=== PATIENT | female | born 1930 | race American Indian/Alaskan Native ===

== ENCOUNTER 2018-03-23 19:31 | Inpatient (IN) | payer MEDICARE ==
--- NOTE | 2018-03-23 19:40 | Emergency Department Report ---
ED Neuro Deficit HPI - General Stated Complaint: POSS STROKE Time Seen by Provider: 03/23/18 19:39 Source: patient, EMS, old records reviewed (no previous meditech) Mode of arrival: Stretcher Limitations: No Limitations - History of Present Illness Initial Comments: 87-year-old female with past medical history of difficulty walking, generalized muscle weekends, lack of coordination, hypothyroidism, hypertension, heart failure, and GERD presents to the hospital with stroke symptoms Last known well time was 6:30 PM. Son at the bedside and noticed sx at 6:30 as well. Pt devel oped slurred speech and possible left-sided weakness. Patient presents to the hospital and oriented 3. She denies pain. Son at bedside states that patient was just admitted to the [facility] for failure to thrive and discharged into the long term on March 19. Prior to the patient lived at home. - Related Data Allergies/Adverse Reactions: Allergies Allergy/AdvReac Type Severity Reaction Status Date / Time No Known Allergies Allergy Unverified 03/23/18 19:34 ED Review of Systems ROS: Stated complaint: POSS STROKE Other details as noted in HPI Comment: All other systems reviewed and negative ED Neuro Physical Exam - General Suspected Stroke: Yes - NIHSS Assessment Interval: Baseline 1a. Level of Consciousness: alert/keenly responsive 1b. LOC Questions: answers both correctly 1c. LOC Commands: performs tasks correctly 2. Best Gaze: normal 3. Visual: no visual loss 4. Facial Palsy: partial paralysis 5b. Motor Arm Right: no drift 5a. Motor Arm Left: drift 6a. Motor Leg Left: no drift 6b. Motor Leg Right: no drift 7. Limb Ataxia: absent 8. Sensory: normal 9. Best Language: no aphasia 10. Dysarthria: mild/moderate dysarthria 11. Extinction/Inattention: no abnormality Total Score: 4 Stroke Severity: Minor Stroke - Other Other exam information: General: No limitations, patient is alert in no acute distress Head exam: Atraumatic, normocephalic Eyes exam: Normal appearance, pupils equal reactive to light, extraocular movements intact ENT: Moist mucous membrane, normal oropharynx Neck exam: Normal inspection, full range of motion, no meningismus nontender Respiratory exam: Clear to auscultation bilateral, no wheezes, rales, crackles Cardiovascular: Abdomen: Soft, nondistended, and nontender, with normal bowel sounds, no rebound, or guarding Extremity: Full range of motion normal inspection no deformity Back: Normal Inspection, full range of motion, no tenderness Neurologic: Alert, oriented x3, left facial droop noted. GCS 15 Psychiatric: normal affect, normal mood Skin: Warm, dry, intact ED Course Vital Signs 03/23/18 03/23/18 03/23/18 20:03 20:10 20:16 Temperature 98.7 F Pulse Rate 75 75 71 Respiratory 12 15 18 Rate Blood Pressure 112/43 112/43 O2 Sat by Pulse 95 Oximetry 03/23/18 03/23/18 03/23/18 20:30 20:46 21:34 Temperature Pulse Rate 86 82 73 Respiratory 21 16 Rate Blood Pressure 134/57 110/53 O2 Sat by Pulse 100 Oximetry 03/23/18 03/23/18 03/23/18 21:37 21:46 22:00 Temperature Pulse Rate 78 71 90 Respiratory 16 21 20 Rate Blood Pressure 108/44 96/47 O2 Sat by Pulse 100 100 Oximetry 03/23/18 03/23/18 03/23/18 22:16 22:30 22:46 Temperature Pulse Rate 99 H 88 76 Respiratory 22 22 15 Rate Blood Pressure 97/39 68/31 94/31 O2 Sat by Pulse 100 100 100 Oximetry 03/23/18 03/23/18 03/23/18 23:00 23:16 23:30 Temperature Pulse Rate 89 81 75 Respiratory 18 13 16 Rate Blood Pressure 117/43 120/49 114/48 O2 Sat by Pulse 100 100 100 Oximetry 03/23/18 03/23/18 03/23/18 23:35 23:46 23:56 Temperature Pulse Rate 76 96 H 85 Respiratory 10 L 21 16 Rate Blood Pressure 114/48 104/54 109/49 O2 Sat by Pulse 100 100 100 Oximetry 03/24/18 03/24/18 03/24/18 00:00 00:16 00:30 Temperature Pulse Rate 89 83 76 Respiratory 10 L 17 12 Rate Blood Pressure 101/50 108/39 110/44 O2 Sat by Pulse 100 100 100 Oximetry 03/24/18 00:46 Temperature Pulse Rate 72 Respiratory 14 Rate Blood Pressure 108/40 O2 Sat by Pulse 100 Oximetry - Reevaluation(s) Reevaluation #1: 03/23/18 22:02 I informed me that patient has worsening left sided weakness. Patient still is alert and oriented 3 but now has some increased weakness to the left side and also has some decreased sensation to touch. 03/23/18 22:50 BP low after TPA, systolic blood pressure dropped to the 50s and 60s. Patient received 1 L of normal saline and systolic pressure is now in the 90s. - Consultations Consultation #1: 03/23/18 19:58 neurologist paged 03/23/18 20:15 case d/w Dr kilgore, [facility] pt 03/23/18 20:35 TPA and cta head and neck recommended. Consultation #2: 03/23/18 22:53 Hypotension while tPA and worsening left sided weakness was discussed with tele- neurologist Dr. Rogers. IV fluids recommended - Lab Data Result diagrams: 03/23/18 19:48 03/23/18 19:48 Lab Results 03/23/18 03/23/18 03/23/18 Range/Units 19:36 19:48 19:48 WBC 6.5 (4.5-11.0) K/mm3 RBC 3.13 L (3.65-5.03) M/mm3 Hgb 9.0 L (10.1-14.3) gm/dl Hct 28.3 L (30.3-42.9) % MCV 90 (79-97) fl MCH 29 (28-32) pg MCHC 32 (30-34) % RDW 17.0 H (13.2-15.2) % Plt Count 923 H (140-440) K/mm3 Lymph % (Auto) 24.7 (13.4-35.0) % [place] % (Auto) 12.2 H (0.0-7.3) % Eos % (Auto) 2.1 (0.0-4.3) % Baso % (Auto) 0.9 (0.0-1.8) % Lymph # 1.6 (1.2-5.4) K/mm3 [place] # 0.8 (0.0-0.8) K/mm3 Eos # 0.1 (0.0-0.4) K/mm3 Baso # 0.1 (0.0-0.1) K/mm3 Seg Neutrophils % 60.1 (40.0-70.0) % Seg Neutrophils # 3.9 (1.8-7.7) K/mm3 PT 14.0 (12.2-14.9) Sec. INR 1.04 (0.87-1.13) APTT 20.0 L (24.2-36.6) Sec. Thrombin Time 18.7 (15.1-19.6) Sec. Sodium (137-145) mmol/L Potassium (3.6-5.0) mmol/L Chloride (98-107) mmol/L Carbon Dioxide (22-30) mmol/L Anion Gap mmol/L BUN (7-17) mg/dL Creatinine (0.7-1.2) mg/dL Estimated GFR ml/min BUN/Creatinine Ratio % Glucose (65-100) mg/dL POC Glucose 173 H (70-105) Calcium (8.4-10.2) mg/dL Troponin T (0.00-0.029) ng/mL 03/23/18 Range/Units 19:48 WBC (4.5-11.0) K/mm3 RBC (3.65-5.03) M/mm3 Hgb (10.1-14.3) gm/dl Hct (30.3-42.9) % MCV (79-97) fl MCH (28-32) pg MCHC (30-34) % RDW (13.2-15.2) % Plt Count (140-440) K/mm3 Lymph % (Auto) (13.4-35.0) % [place] % (Auto) (0.0-7.3) % Eos % (Auto) (0.0-4.3) % Baso % (Auto) (0.0-1.8) % Lymph # (1.2-5.4) K/mm3 [place] # (0.0-0.8) K/mm3 Eos # (0.0-0.4) K/mm3 Baso # (0.0-0.1) K/mm3 Seg Neutrophils % (40.0-70.0) % Seg Neutrophils # (1.8-7.7) K/mm3 PT (12.2-14.9) Sec. INR (0.87-1.13) APTT (24.2-36.6) Sec. Thrombin Time (15.1-19.6) Sec. Sodium 132 L (137-145) mmol/L Potassium 4.8 (3.6-5.0) mmol/L Chloride 96.5 L (98-107) mmol/L Carbon Dioxide 23 (22-30) mmol/L Anion Gap 17 mmol/L BUN 21 H (7-17) mg/dL Creatinine 0.8 (0.7-1.2) mg/dL Estimated GFR > 60 ml/min BUN/Creatinine Ratio 26 % Glucose 157 H (65-100) mg/dL POC Glucose (70-105) Calcium 8.6 (8.4-10.2) mg/dL Troponin T 0.024 (0.00-0.029) ng/mL - EKG Data -: EKG Interpreted by Me EKG shows normal: sinus rhythm (qrsd 112), axis (qrs -48), QRS complexes (qrsd 112), ST-T waves (lat t inv) When compared to previous EKG there are: previous EKG unavailable - Radiology Data Radiology results: report reviewed ct head: No acute findings CT angiogram head: No acute findings CT angiogram neck: Bilateral arthrosclerotic carotid disease without significant narrowing - Medical Decision Making Patient received TPA. Just before the end of tpa infusion patient developed worsening left-sided weakness, continued to deny pain, and blood pressure decreased. Blood pressure increased after 1 L normal saline bolus. CTA performed and patient is not a candidate for transfer to [facility]. Hospitalist informed for admission P - Differential Diagnosis stroke, encephalopathy, infection - Thrombolytic Inclusion/Exclusion Thrombolytic Inclusion Criteria: Ischemic Stroke Onset< 3h, NIH Stroke Scale Deficit, Negative CT Scan for ICH, Age 18 or Older, Glucose of 50-400mg/dl Critical Care Time: Yes Critical care time in (mins) excluding proc time.: 40 Critical care attestation.: If time is entered above; I have spent that time in minutes in the direct care of this critically ill patient, excluding procedure time. ED Disposition Clinical Impression: Acute CVA (cerebrovascular accident), Left-sided weakness, Slurred speech, Received intravenous tissue plasminogen activator (tPA) in emergency department Disposition: DC-09 OP ADMIT IP TO THIS HOSP Is pt being admited?: Yes Condition: Stable Time of Disposition: 22:55 (Dr Donaldson/hosp)
--- NOTE | 2018-03-23 19:56 | Cat Scan Report ---
FINAL REPORT PROCEDURE: CT head without contrast. TECHNIQUE: Computerized tomography of the head was performed without contrast material. HISTORY: neuro deficits <6hrs or sx present upon awakening, LT SIDED WEAKNESS, UNABLE TO STRAIGHT EN HEAD COMPARISON: No prior studies are available for comparison. FINDINGS: There is moderate cerebral atrophy. There is some focal diminished attenuation in the subcortical whi te matter of the right frontal lobe. This is located laterally. This likely represents chronic microv ascular ischemic change. There are no definite signs of acute infarction. An MRI scan with diffusion- weighted imaging is the most sensitive means of detecting an early stroke. There are no mass lesions. There is no intracranial hemorrhage. The calvarium appears intact. The mastoid air cells and paranas al sinuses are well aerated. IMPRESSION: Normal study of the brain for age.
[2018-03-23 20:09] LABS: Basophils # (Auto) 0.1 K/mm3 (0.0-0.1); Basophils % (Auto) 0.9 % (0.0-1.8); Eosinophils # (Auto) 0.1 K/mm3 (0.0-0.4); Eosinophils % (Auto) 2.1 % (0.0-4.3); Hematocrit 28.3 % (30.3-42.9); Lymphocytes # (Auto) 1.6 K/mm3 (1.2-5.4); Lymphocytes % (Auto) 24.7 % (13.4-35.0); Mean Corpuscular HGB Conc 32 % (30-34); Mean Corpuscular Volume 90 fl (79-97); Monocytes # (Auto) 0.8 K/mm3 (0.0-0.8); Monocytes % (Auto) 12.2 % (0.0-7.3); Platelet Count 923 K/mm3 (140-440); Red Blood Count 3.13 M/mm3 (3.65-5.03)
[2018-03-23 20:22] LABS: BUN/Creatinine Ratio 26; Blood Urea Nitrogen 21 mg/dL (7-17); Calcium 8.6 mg/dL (8.4-10.2); Hemolysis Index 2
[2018-03-23 20:25] LABS: INR 1.04 (0.87-1.13)
[2018-03-23 20:26] LABS: Thrombin Time 18.7 Sec. (15.1-19.6)
[2018-03-23] MEDS ORDERED: ACTIVASE IV ONE ×2 (20:35)
[2018-03-23] MEDS ORDERED: NACL 0.9% IV ONE (20:35)
--- NOTE | 2018-03-23 21:37 | Cat Scan Report ---
FINAL REPORT PROCEDURE: CT angiogram head with contrast TECHNIQUE: Computerized tomographic angiography of the head was performed after the IV injection of iodinated nonionic contrast including image processing. The image data was postprocessed using 2-dime nsional multiplanar reformatted (MPR) and 3-dimensional (MIP and/or volume rendered) techniques. HISTORY: acute stroke. left sided droop, slurred speech COMPARISON: No prior studies are available for comparison. FINDINGS: Both distal internal carotid arteries are patent. Both anterior cerebral arteries are patent. The ant erior communicating artery is not definitely visualized. Both middle cerebral arteries are patent. Benja th posterior communicating arteries are patent. Both posterior cerebral arteries appear to have origins from the internal carotid arteries. Both distal vertebral arteries are patent. Both posterio r inferior cerebellar arteries are patent. The basilar artery is small but patent. Both anterior infe rior cerebellar arteries are faintly visible. Both superior cerebellar arteries are patent. There are no signs of aneurysm disease. There is no evidence of a vasculitis. There are no signs of abnormal c ontrast enhancement within the brain parenchyma. IMPRESSION: No significant abnormality identified.
--- NOTE | 2018-03-23 22:26 | Cat Scan Report ---
FINAL REPORT PROCEDURE: CT angiogram neck with contrast. TECHNIQUE: Computerized tomographic angiography of the neck was performed after the IV injection of iodinated nonionic contrast including image processing. The image data was postprocessed using 2-dime nsional multiplanar reformatted (MPR) and 3-dimensional (MIP and/or volume rendered) techniques. HISTORY: acute stroke. left sided droop, slurred speech COMPARISON: No prior studies are available for comparison. Note: Assessment of carotid artery stenosis is based on measurement of the distal internal carotid a rtery diameter as the denominator for stenosis calculations and the [place] Symptomatic Caroti d Endarterectomy Trial (NASCET) stenosis criteria . CPT 3100F FINDINGS: The origins of the innominate artery, left common carotid artery and left subclavian artery are widel y patent. There is calcified plaque present in the mid and distal portions of the right common caroti d artery. There is no significant narrowing however. There is additional calcified plaque at the flores tid bifurcation. The origins of the internal and external carotid arteries are widely patent. The cer vical portion of the right internal carotid artery has a satisfactory lumen. There is calcified plaqu e in the midportion of the left common carotid artery. Again there is no significant narrowing at thi s location. There is additional calcified plaque at the left carotid bifurcation. There is minimal na rrowing at the origin of the left internal carotid artery. This is estimated at 20 percent. The exter nal carotid artery is widely patent. The cervical portion of the left internal carotid artery appear satisfactory. Both vertebral arteries are patent. The soft tissues of the neck are unremarkable. The bones appear intact. IMPRESSION: Bilateral atherosclerotic disease involving the carotid arteries. No evidence of hemodynamically sign ificant narrowing however.
[2018-03-23] MEDS ORDERED: NACL 0.9% 1000 ML 1,000 ML ONE (22:28)
[2018-03-23] MEDS ORDERED: NACL 0.9% 1000 ML 1,000 ML IV ONE (22:35)
[2018-03-23] MEDS ORDERED: TYLENOL PR PRN (23:52)
[2018-03-23] MEDS ORDERED: ZOFRAN IV PRN (23:56)
[2018-03-24] MEDS ORDERED: NACL 0.9% 1000 ML 1,000 ML IV SCH (01:00)
[2018-03-24] MEDS ORDERED: NACL 0.9% 1000 ML 1,000 ML ONE (01:20)
--- NOTE | 2018-03-24 06:40 | History and Physical Report ---
CHIEF COMPLAINT: Slurred speech. Other complaints include weakness of the left side of the body and drooling on the left side of the face. HISTORY OF PRESENT ILLNESS: The patient is an 87-year-old female, who was recently discharged from [facility] and [facility] and was noted by the son at the bedside to be having slurred speech few hours prior to presentation and also the patient was noted to be having left-sided weakness, and EMS was called and the patient was subsequently transported to the Emergency Room for evaluation, No history of chest pain or shortness of breath or dizziness. The patient was seen in the Emergency Room and given the TPA because she arrived within the 3-hour window for TPA treatment and subsequently presented for admission. PAST MEDICAL HISTORY: Pertinent for hypertension, congestive heart failure, gastroesophageal reflux disease, and hypothyroidism. PAST SURGICAL HISTORY: Not clear. We will defer. FAMILY HISTORY: Noncontributory. SOCIAL HISTORY: The patient stays at the senior care, does not smoke, does not drink alcohol, and does not use illicit drugs. MEDICATIONS: The patient's home medications are not known at this time. ALLERGIES: There are no known drug allergies. REVIEW OF SYSTEMS: CONSTITUTIONAL: There is no fever, no chills, no diaphoresis. HEENT: There is no headache or sore throat. CARDIOVASCULAR SYSTEM: There is no chest pain or orthopnea. RESPIRATORY SYSTEM: There is no shortness of breath or cough. GASTROINTESTINAL SYSTEM: There is no nausea, no vomiting, no abdominal pain, diarrhea or constipation. NEUROLOGICAL SYSTEM: Speech impairment with slurring of speech noted. Drooling of the left side of the face noted. Weakness on the left side of the body noted. There is no altered mental status and there is no numbness. MUSCULOSKELETAL SYSTEM: There is no joint pain or swelling. DERMATOLOGICAL SYSTEM: There is no skin rash or itching. GENITOURINARY SYSTEM: There is no dysuria, hematuria or flank pain. Rest of system review is normal. PHYSICAL EXAMINATION: GENERAL: At the time of exam, the patient was found to be alert and oriented x3 and in mild distress due to weakness on the left side. VITAL SIGNS: At the initial time of presentation showed that the patient has a temperature of 98.7 degrees Fahrenheit, pulse of 75, respirations 16, blood pressure 102/43, and O2 sat of 95% on room air. HEENT: Exam shows pupils to be equal, round, and reactive to light and accommodation. Extraocular muscles are intact. NECK: Supple with no JVD or carotid bruit. CARDIOVASCULAR SYSTEM: Showed normal first and second heart sounds with no gallops or murmur. RESPIRATORY SYSTEM: Showed good air entry on both sides of the lungs with no abnormal breath sounds. GASTROINTESTINAL SYSTEM: Showed abdomen to be full, soft, nontender with no organomegaly or rigidity. NEUROLOGIC SYSTEM: Exam showed the patient with drooling on the left side of the face with mouth drawn to the right side and the muscle weakness on left upper and lower limb with strength of grade 3/6 compared to grade 6/6 on the right. There is no loss of sensory function. MUSCULOSKELETAL SYSTEM: Showed no joint swelling or tenderness. DERMATOLOGICAL SYSTEM: Showed no skin rash. GENITOURINARY SYSTEM: Showing no costovertebral angle tenderness. PERTINENT LABORATORY DATA AND IMAGING STUDIES: The patient had a CT of the head without contrast done that shows no acute lesion and also the patient has CT angiogram of the head that shows no significant abnormality. The patient also had a CT angiogram of the neck, which shows bilateral atherosclerotic disease involving the carotid arteries with no evidence of hemodynamically significant narrowing. Laboratory results: The patient has CBC done with low hemoglobin of 9 and low hematocrit of 28.3, with normal MCV and with CBC differential showing elevated monocyte count of 12.2%. The patient's platelet level is high with a value of 923. Coagulation studies were unremarkable. The patient's chemistry shows slight decrease in sodium level of 132 with decreased chloride of 96.2 and elevated blood glucose level of 157 and normal troponin level. DIAGNOSES: 1. Cerebrovascular accident, status post TPA. 2. Speech impairment. 3. Hypotension. PLAN OF CARE: 1. The patient will be admitted to telemetry. 2. The patient will have Neurology consult with Dr. Derick Matute this morning. 3. The patient will have physical therapy and speech therapy consult for evaluation and treatment this morning. 4. The patient will remain n.p.o. until she passes the swallow test. 5. The patient will have MRI of the brain without contrast done this morning. 6. The patient will be on Tylenol 650 mg rectally every 4 hours as needed for fever and headache and IV Zofran 4 mg every 8 hours for nausea and vomiting. 7. The patient will be on oxygen by nasal cannula at 2 liters per minute. 8. The patient will be on IV normal saline at 75 mL an hour. 9. The patient will have bilateral carotid Doppler as well as 2D echo done this morning as part of stroke workup. 10. The patient will be on neuro check q.4 hours and DVT prophylaxis will be through sequential compressive device. JOB# [id number] OCN/NTS MTDD
[2018-03-24 07:24] LABS: Partial Thromboplastin Time 29.9 Sec. (24.2-36.6)
--- NOTE | 2018-03-24 10:35 | Progress Note ---
Assessment and Plan Acute cerebrovascular accident, - status post TPA, MRI brain pending - cont post tPA stroke protocol, consulted neuro History of hypertension. - BP stable, cont to monitor Adult failure to thrive. - PT eval, diet consult Hypothyroidism. - will start synthroid after cleared by speech Congestive heart failure with rEF 15% - compensated now Gastroesophageal reflux disease, PPI Mild hyponatremia, gentle hydration for now Anemia normocytic, monitor h/H, will check iron level Brief history: 87-year-old female with past medical history of recent CVA and [place] [facility] [place] [facility] [place], hypothyroidism, hypertension, heart failure, and GERD presents to the hospital with stroke symptoms Last known well time was 6:30 PM per the SON. Pt developed slurred speech and possible left-sided weakness. She was given TPA in the ER as she was in the therapeutic window. Admitted with stroke protocol. Subjective Date of service: 03/24/18 Interval history: Pt seen and examined, follows commend, denies any chest pain or SOB speech eval pending Objective - Constitutional Vitals: Vital Signs - 12hr 03/23/18 03/23/18 03/23/18 22:46 23:00 23:16 Pulse Rate 76 89 81 Pulse Rate [ From Monitor] Pulse Rate [ Left Arm] Respiratory 15 18 13 Rate Respiratory Rate [Left Arm] Blood Pressure 94/31 117/43 120/49 Blood Pressure [Left Arm] O2 Sat by Pulse 100 100 100 Oximetry O2 Sat by Pulse Oximetry [Left Arm] 03/23/18 03/23/18 03/23/18 23:30 23:35 23:46 Pulse Rate 75 76 96 H Pulse Rate [ From Monitor] Pulse Rate [ Left Arm] Respiratory 16 10 L 21 Rate Respiratory Rate [Left Arm] Blood Pressure 114/48 114/48 104/54 Blood Pressure [Left Arm] O2 Sat by Pulse 100 100 100 Oximetry O2 Sat by Pulse Oximetry [Left Arm] 03/23/18 03/24/18 03/24/18 23:56 00:00 00:16 Pulse Rate 85 89 83 Pulse Rate [ From Monitor] Pulse Rate [ Left Arm] Respiratory 16 10 L 17 Rate Respiratory Rate [Left Arm] Blood Pressure 109/49 101/50 108/39 Blood Pressure [Left Arm] O2 Sat by Pulse 100 100 100 Oximetry O2 Sat by Pulse Oximetry [Left Arm] 03/24/18 03/24/1803/24/19 00:30 00:46 01:00 Pulse Rate 76 72 77 Pulse Rate [ From Monitor] Pulse Rate [ Left Arm] Respiratory 12 14 13 Rate Respiratory Rate [Left Arm] Blood Pressure 110/44 108/40 106/42 Blood Pressure [Left Arm] O2 Sat by Pulse 100 100 100 Oximetry O2 Sat by Pulse Oximetry [Left Arm] 03/24/18 03/24/18 03/24/18 01:16 01:30 01:46 Pulse Rate 95 H 85 87 Pulse Rate [ From Monitor] Pulse Rate [ Left Arm] Respiratory 19 18 14 Rate Respiratory Rate [Left Arm] Blood Pressure 108/40 114/42 114/42 Blood Pressure [Left Arm] O2 Sat by Pulse 100 100 100 Oximetry O2 Sat by Pulse Oximetry [Left Arm] 03/24/18 03/24/18 03/24/18 02:00 02:16 02:30 Pulse Rate 79 76 65 Pulse Rate [ From Monitor] Pulse Rate [ Left Arm] Respiratory 17 14 15 Rate Respiratory Rate [Left Arm] Blood Pressure 111/43 111/43 111/43 Blood Pressure [Left Arm] O2 Sat by Pulse 100 100 100 Oximetry O2 Sat by Pulse Oximetry [Left Arm] 03/24/18 03/24/18 03/24/18 02:46 03:00 07:00 Pulse Rate 57 L 81 Pulse Rate [ 85 From Monitor] Pulse Rate [ Left Arm] Respiratory 14 16 Rate Respiratory Rate [Left Arm] Blood Pressure 111/43 105/45 Blood Pressure [Left Arm] O2 Sat by Pulse 100 100 100 Oximetry O2 Sat by Pulse Oximetry [Left Arm] 03/24/18 07:19 Pulse Rate Pulse Rate [ From Monitor] Pulse Rate [ 78 Left Arm] Respiratory Rate Respiratory 16 Rate [Left Arm] Blood Pressure Blood Pressure 102/47 [Left Arm] O2 Sat by Pulse Oximetry O2 Sat by Pulse 100 Oximetry [Left Arm] General appearance: Present: no acute distress, cachectic - EENT Eyes: PERRL, EOM intact ENT: hearing intact, clear oral mucosa Ears: bilateral: normal - Neck Neck: supple, normal ROM - Respiratory Respiratory effort: normal Respiratory: bilateral: CTA - Cardiovascular Rhythm: regular Heart Sounds: Present: S1 & S2. Absent: gallop, rub Extremities: pulses intact, No edema, normal color, Full ROM - Gastrointestinal General gastrointestinal: Present: soft, non-tender, non-distended, normal bowel sounds - Genitourinary Female genitourinary: normal - Integumentary Integumentary: clear, warm, dry - Musculoskeletal Musculoskeletal: 1, strength equal bilaterally - Neurologic Neurologic: moves all extremities - Psychiatric Psychiatric: memory intact, appropriate mood/affect, intact judgment & insight - Labs CBC & Chem 7: 03/23/18 19:48 03/23/18 19:48 Labs: Abnormal lab results 03/23/18 03/23/18 03/23/18 Range/Units 19:36 19:48 19:48 RBC 3.13 L (3.65-5.03) M/mm3 Hgb 9.0 L (10.1-14.3) gm/dl Hct 28.3 L (30.3-42.9) % RDW 17.0 H (13.2-15.2) % Plt Count 923 H (140-440) K/mm3 [place] % (Auto) 12.2 H (0.0-7.3) % Sodium 132 L (137-145) mmol/L Chloride 96.5 L (98-107) mmol/L BUN 21 H (7-17) mg/dL Glucose 157 H (65-100) mg/dL POC Glucose 173 H (70-105) 03/24/18 Range/Units 09:53 RBC (3.65-5.03) M/mm3 Hgb (10.1-14.3) gm/dl Hct (30.3-42.9) % RDW (13.2-15.2) % Plt Count (140-440) K/mm3 [place] % (Auto) (0.0-7.3) % Sodium (137-145) mmol/L Chloride (98-107) mmol/L BUN (7-17) mg/dL Glucose (65-100) mg/dL POC Glucose 112 H (70-105) - Imaging and cardiology CT Scan - head: report reviewed
[2018-03-24] MEDS: PROTONIX IV SCH (10:45)
--- NOTE | 2018-03-24 14:20 | Magnetic Resonance Report ---
MRI BRAIN WITHOUT CONTRAST INDICATION: CVA. COMPARISON: CT imaging from yesterday. FINDINGS: Noncontrast multiplanar and multisequence MRI of the brain demonstrates symmetric, age-appropriate, mildly enlarged ventricles and sulci. Mild periventricular white matter FLAIR and T2 weighted hyperintensities, greatest approximately 2 cm in the right frontal lobe axial image 19, series 7. No acute infarct, hemorrhage, mass effect or midline shift. No abnormal extra-axial masses or fluid collections. Normal major intracranial vascular flow voids. Normal posterior fossa with symmetric seventh and eighth nerve complexes. Preserved basilar cisterns. Bilateral cataract surgery. Left sphenoid sinus opacification. Grossly clear remainder imaged paranasal sinuses and mastoid air cells. Partially empty sella. Normal midline structures without evidence of Chiari malformation. Multilevel cervical spondylosis noted. Possible edentulous jaw. CONCLUSION: 1. Severe left sphenoid sinusitis, most consistent with chronic mucoperiosteal thickening with probable postsurgical changes on the prior CT. Please also correlate with surgical notes. 2. Otherwise no acute intracranial MRI abnormality with age-appropriate atrophy, microvascular changes and few other findings, as above. Thank you for the opportunity to participate in this patient's care.
--- NOTE | 2018-03-24 14:24 | Vascular Lab Report ---
FINAL REPORT EXAM: VL CAROTID DUPLEX BILAT HISTORY: CVA TECHNIQUE: Carotid ultrasound. Degree of carotid stenosis calculated by indirect methods via the pea k systolic velocities of the ICA and CCA and reference with the society of Radiologist and Ultrasound consensus conference radiology 2003. PRIORS: None currently available. FINDINGS: RIGHT CCA, ICA, and ECA (cm/s): 112, 220, and 155. Ratio = 1.96. LEFT CCA, ICA, and ECA (cm/s): 118, 169, and 122. Ratio = 1.44. Koyg-go-ohyscbnf plaque both common carotids, carotid bifurcations and proximal portions of both ICAs . Mid and distal right ICAs velocities measure 160 and 129, respectively. Both vertebral arteries demonstrate antegrade flow. Normal spectral rhythm is identified. IMPRESSION: 25-35 percent stenosis suspected in the left carotid bifurcation and proximal right ICA based on colo r and velocities.
--- NOTE | 2018-03-24 15:25 | Consultation ---
History of Present Illness Consult date: 03/24/18 Requesting physician: OSITO GARNETT Reason for consult: other (Acute CVA s/p tpA) History of present illness: PULMONARY/CCM CONSULT NOTE (Full dictation # [id number]) Please see dictated notes for full details Medications and Allergies Allergies Allergy/AdvReac Type Severity Reaction Status Date / Time No Known Allergies Allergy Unverified 03/23/18 19:34 Active Meds: Active Medications Acetaminophen (Tylenol) 650 mg [place] Q4H PRN PRN Reason: Fever >101 Enoxaparin Sodium (Lovenox) 40 mg SUB-Q QDAY@1000 YAHIR Sodium Chloride (Nacl 0.9% 1000 Ml) 1,000 mls @ 75 mls/hr IV DIRECT YAHIR Last Admin: 03/24/18 01:36 Dose: 75 mls/hr Documented by: Ondansetron HCl (Zofran) 4 mg IV Q8H PRN PRN Reason: Nausea And Vomiting Pantoprazole Sodium (Protonix) 40 mg IV QDAY [facility] Last Admin: 03/24/18 10:45 Dose: 40 mg Documented by: Physical Examination Vital signs: Vital Signs Pulse Resp 75 12 03/23/18 20:03 03/23/18 20:03 Results - Laboratory Findings CBC and BMP: 03/23/18 19:48 03/23/18 19:48 PT/INR, D-dimer PT 14.0 Sec. (12.2-14.9) 03/23/18 19:48 INR 1.04 (0.87-1.13) 03/23/18 19:48 Abnormal lab findings: Abnormal Labs 03/23/18 03/23/18 03/23/18 19:36 19:48 19:48 RBC 3.13 L Hgb 9.0 L Hct 28.3 L RDW 17.0 H Plt Count 923 H [place] % (Auto) 12.2 H Sodium 132 L Chloride 96.5 L BUN 21 H Glucose 157 H POC Glucose 173 H 03/24/18 09:53 RBC Hgb Hct RDW Plt Count [place] % (Auto) Sodium Chloride BUN Glucose POC Glucose 112 H
[2018-03-24 16:56] LABS: Chol/HDL Ratio 3.84 %
--- NOTE | 2018-03-24 18:12 | Cat Scan Report ---
FINAL REPORT EXAM: CT HEAD/BRAIN WO CON HISTORY: CVA s/p TPA TECHNIQUE: Contiguous axial images of the head were obtained without the use of intravenous contrast . PRIORS: 03/23/2018 FINDINGS: There is no evidence of acute intracranial hemorrhage. There is a small low-attenuation area in the r ight frontal lobe most likely represents a chronic infarct, without change. There is no evidence of a cute infarct or intracranial hemorrhage. There is no mass lesion or mass effect. There are no abnorm al extra-axial fluid collections. The ventricles and sulci are prominent consistent with generalized loss of brain substance, appropriate for age. There is deep white matter lucency consistent with refiner operator kiera microvascular ischemic disease. The visualized skull and orbits are unremarkable. The visualized paranasal sinuses are clear. IMPRESSION: 1. No evidence of acute infarct or intracranial hemorrhage. 2. White matter lucency consistent with chronic microvascular ischemic disease. 3. Right frontal low-attenuation area may represent a chronic infarct
--- NOTE | 2018-03-24 18:53 | Progress Note ---
Assessment and Plan This is an 87 YO F with TIA clinically. Work up so far unrevealing. Recommend: MRI Brain, echo, CTA reviewed PT/OT/ST/return to rehab VTE prophylaxis aspirin and statin Conservative BP management secondary to age Continue care for all medical issues as you are doing No further recommendations. Call with questions. Subjective Date of service: 03/24/18 Principal diagnosis: TIA Interval history: This is a very spunky 87 YO F who was brought in with acute left sided weakness. PT treated with Alteplase and is almost back to baseline. Speech and mentation is good but left arm is still a little weak. Pt initially evaluated by teleneuro. Follow up CT head is without hemorrhage., MRI did not show acute ischemia. Objective - Vital Sign Vital Signs - 12hr 03/24/18 03/24/18 03/24/18 07:00 07:19 09:29 Temperature 98.4 F Pulse Rate [ 85 From Monitor] Pulse Rate [ 78 Left Arm] Respiratory 16 Rate [Left Arm] Blood Pressure 102/47 [Left Arm] O2 Sat by Pulse 100 Oximetry O2 Sat by Pulse 100 Oximetry [Left Arm] 03/24/18 03/24/18 03/24/18 09:49 10:00 11:00 Temperature Pulse Rate [ 97 H From Monitor] Pulse Rate [ 67 Left Arm] Respiratory 14 Rate [Left Arm] Blood Pressure 122/43 [Left Arm] O2 Sat by Pulse 100 100 Oximetry O2 Sat by Pulse 100 Oximetry [Left Arm] 03/24/18 03/24/18 03/24/18 11:49 12:00 13:00 Temperature 98.5 F Pulse Rate [ 67 From Monitor] Pulse Rate [ 80 67 Left Arm] Respiratory 14 13 Rate [Left Arm] Blood Pressure 123/41 123/46 [Left Arm] O2 Sat by Pulse 100 Oximetry O2 Sat by Pulse 100 100 Oximetry [Left Arm] 03/24/18 03/24/18 03/24/18 13:49 14:00 16:00 Temperature 98.5 F Pulse Rate [ 67 From Monitor] Pulse Rate [ 89 Left Arm] Respiratory 14 Rate [Left Arm] Blood Pressure 119/49 [Left Arm] O2 Sat by Pulse 100 Oximetry O2 Sat by Pulse 99 Oximetry [Left Arm] - EENT EENT: PERRL, hearing intact, vision intact - Respiratory Respiratory: lungs clear - Cardiovascular Cardiovascular: regular rate - Neurologic Cranial nerve examination: PERRL, EOMI, VFF, V1/V2/V3 grossly intact, face symmetric, tongue midline Speech examination: intact Motor examination - right side: 45: biceps, triceps, wrist flexion, wrist extension, commercial designer, hip flexors, knee extensors, dorsiflexion, toe extension (EHL), plantarflexion Motor examination - left side: 3/5: biceps, triceps, wrist flexion, wrist extension, commercial designer, 4/5: hip flexors, knee extensors, dorsiflexion, toe extension (EHL), plantarflexion Detailed sensory examination: intact Reflex and gait examination: other (walks with walker) Reflexes: 0: ankle, bicep, knee, tricep - Laboratory Findings CBC and BMP: 03/23/18 19:48 03/23/18 19:48 Abnormal Lab Findings: Abnormal Labs 03/23/18 03/23/18 03/23/18 19:36 19:48 19:48 RBC 3.13 L Hgb 9.0 L Hct 28.3 L RDW 17.0 H Plt Count 923 H [place] % (Auto) 12.2 H Sodium 132 L Chloride 96.5 L BUN 21 H Glucose 157 H POC Glucose 173 H HDL Cholesterol 03/24/18 03/24/18 09:53 15:53 RBC Hgb Hct RDW Plt Count [place] % (Auto) Sodium Chloride BUN Glucose POC Glucose 112 H HDL Cholesterol 32 L
[2018-03-24] MEDS: D5NS 1,000 ML IV SCH (21:50)
--- NOTE | 2018-03-25 02:01 | Consultation ---
PULMONARY CRITICAL CARE CONSULT NOTE CONSULTING PHYSICIAN: Brielle Maxwell MD REASON FOR CONSULTATION: Acute cerebrovascular accident, status post TPA administration, need for ICU observation. CHIEF COMPLAINT AND HISTORY OF PRESENT ILLNESS: As follows: The patient is an 87-year-old very pleasant -[place] female with past medical history as far as we can tell significant for diagnosis of hypertension and heart failure, who came into the Emergency Room after she was found at her half-way to not be able to move I believe her left hand. She also had some difficulty walking. There is son who is also at the bedside said that he noticed the symptoms few hours before coming into the ER. By the time she came to the hospital, she was alert and oriented x 3. She denied any chest pain. She denied any palpitations. She had been [facility], but not for stroke symptoms. After evaluation, the patient met criteria for administration of TPA and she did receive TPA administration as part of the stroke protocol. Post the TPA, she had some transient hypotension along with initial worsening of the left-sided weakness and she was started on IV fluids overall. She was then transferred to the Intensive Care Unit where I stopped by to see her. When I stopped by to see her, her slurred speech was getting better. Her left-sided weakness was better. She denied any headache new or prior to presentation. She denied any nausea, vomiting, or overt aspiration. She denied fever or chills. She describes herself as a never smoker. That really is as much of the history of presentation as I have. As far she knows, she also did not fall. CT angiograms of the head showed no acute findings as well as of the CT of the head. CT angiogram of the neck showed bilateral atherosclerotic carotid disease without significant narrowing. This really is as much of her history of presentation as I have. PAST MEDICAL HISTORY: Again, significant for hypertension, hypothyroidism, heart failure, gastroesophageal reflux disease, adult failure to thrive with generalized muscle weakness. PAST SURGICAL HISTORY: Unknown, although she thinks she might have had some surgery to the left eye. MEDICATIONS: She was on at the time I stopped by to see her were reviewed. Pertinent medications include the following: She was on Tylenol 650 mg p.o. q. 4 hours p.r.n. fever greater than 101. She was on Zofran 4 mg IV q. 8 hours p.r.n. nausea and vomiting and she was on Protonix 40 mg IV daily. ALLERGIES: No known drug allergies. DIET: Very thin lady. She has actually been losing weight of late according to the family. Her appetite has not been the best she tells me. FAMILY AND SOCIAL HISTORY: Lives in a half-way. Her son is in the room. She denies history of alcohol, tobacco, or illicit drug use or abuse. Family history, otherwise, noncontributory. REVIEW OF SYSTEMS: Difficult to obtain, but no overt loss of consciousness. No new onset seizures. She had the new onset focal weakness with a left facial droop and slurred speech at presentation. Denies gross hematochezia or melena. Denies gross hematuria or dysuria. No hematemesis. No hemoptysis. Denies heat or cold intolerance. Denies polydipsia or polyuria. Complete 13-system review of systems was obtained. Pertinent positives and/or negatives as in body of history above, otherwise, they are noncontributory. PHYSICAL EXAMINATION: VITAL SIGNS: At presentation in the Emergency Room, temperature was 98.7 degrees Fahrenheit, pulse was 75, respiratory rate was 15, blood pressure 112/43, O2 sats were 95%, inspired oxygen concentration at the time was not recorded. When I stopped by to see her, her O2 sats were 100% on room air. GENERAL: Elderly-looking, chronically ill-looking -[place] female, normocephalic, atraumatic, talking to me in mostly full sentences without overt respiratory distress. HEAD, EYES, EARS, NOSE AND THROAT: She is anicteric. No conjunctival erythema. Oropharynx is moist. It is a Mallampati #2. Grossly, no palpable lymph nodes in the supraclavicular or submandibular lymph node chains. She has some temporal wasting and supraclavicular wasting. LUNGS: Auscultation of both lung saini unremarkable. Lungs are clear bilaterally. HEART: Heart sounds 1 and 2 are heard. They were regular in rate and rhythm at the time of my evaluation without rubs or murmurs. ABDOMEN: Soft, full, bowel sounds are positive, nontender. No palpable hepatosplenomegaly. EXTREMITIES: Without overt digital clubbing or cyanosis and no significant pedal edema. Dorsalis pedis pulses are palpable bilaterally. NEUROLOGIC: Both pupils are round, not equal. The right pupil was about 4 mm, sluggishly reactive to light. The left pupil was about 5 mm, nonreactive to light. Extraocular muscle movements were intact. The power in the left upper and lower extremity was about 3-4/5 while it was about 4-5/5 on the right side. SKIN: Normal turgor without cellulitis or rash. LABORATORY DATA: From my review are as follows: White cell count 6500, hemoglobin 9.0, hematocrit 28.3, platelet count 923. No manual differential. INR within normal limits. Serum sodium was 132, potassium 4.8, chloride 97, bicarbonate 23, BUN 21, creatinine 0.8, glucose was 157. Troponin was within normal limits. No microbiology studies. She had CT scan and CTA of the head and neck as mentioned above and those were as reported. She also had MRI of the brain as well as an echocardiogram. The MRI shows no acute intracranial abnormality. A 2D echo shows an ejection fraction of 15-20% with diastolic dysfunction. Right ventricular chamber size and systolic function were within normal limits. ASSESSMENT AND PLAN: 1. Acute cerebrovascular accident, status post TPA based on the clinical examination and symptoms. 2. History of hypertension. 3. Adult failure to thrive. 4. Hypothyroidism. 5. Congestive heart failure, compensated with low ejection fraction. 6. Gastroesophageal reflux disease. 7. Mild hyponatremia. 8. Anemia that is normocytic. 9. Elevated serum BUN 10. Hyperglycemia. PLAN: She is status post TPA and is going to be observed in the ICU for about 24 hours. Secondary prevention modalities will be instituted. Lipid therapy will be started. We will begin DVT prophylaxis after 24 hours. Aspiration precautions will be maintained. A swallow evaluation will be done and the plan will be to advance her diet as tolerated. Blood pressure control will be initially targeted to around 140 mmHg or little lower. I am going to put her on again the Lovenox to begin post-TPA protocol. Physical therapy evaluation and treatment has been ordered. Flu and pneumonia vaccination will be addressed per protocol. Thank you very much for the consult, Dr. Maxwell. We will follow along and we will make further recommendations as picture progresses/becomes clearer. JOB# [id number] CHAGO/MERVAT REYNOLDS
[2018-03-25] MEDS: PROTONIX IV SCH (09:55)
[2018-03-25] MEDS ORDERED: ASPIRIN PR SCH (10:00)
[2018-03-25] MEDS: LOVENOX SUB-Q SCH (11:11)
[2018-03-25] MEDS: D5NS 1,000 ML IV SCH (11:15)
--- NOTE | 2018-03-25 11:38 | Progress Note ---
Assessment and Plan Acute cerebrovascular accident, status post TPA based on the clinical examination and symptoms. History of hypertension. Adult failure to thrive. Hypothyroidism. Congestive heart failure, compensated with low ejection fraction. Gastroesophageal reflux disease. Mild hyponatremia. Anemia that is normocytic. Elevated serum BUN Hyperglycemia. - Continue with secondary stroke prophylaxis - Aspiration precautions - ST evaluation and advance diet - PT/OT, increase activity - Chronic home medications - Discharge planning ongoing concurrently Subjective Date of service: 03/25/18 Principal diagnosis: CVA s/p TPA; Hypertension; moderate protein calorie malnutrition Interval history: Patient is seen today for: CVA s/p TPA; Hypertension; moderate protein calorie malnutrition Seen and examined at bedside; 24hour events reviewed; nursing and respiratory care staff consulted; no adverse overnight events reported to me; up in bed; Denies any chest pain; no shortness of breath; no cough / expectoration; no headache or seizures Objective Vital Signs - 12hr 03/24/18 03/24/18 03/25/18 23:40 23:50 00:00 Temperature Pulse Rate 68 77 71 Pulse Rate [ From Monitor] Pulse Rate [ Left Dorsalis Pedis] Pulse Rate [ Left Radial] Pulse Rate [ Right Dorsalis Pedis] Pulse Rate [ Right Radial] Respiratory 13 14 13 Rate Blood Pressure 129/49 129/49 119/46 O2 Sat by Pulse 97 99 99 Oximetry 03/25/18 03/25/18 03/25/18 00:10 00:20 00:30 Temperature Pulse Rate 69 74 70 Pulse Rate [ From Monitor] Pulse Rate [ Left Dorsalis Pedis] Pulse Rate [ Left Radial] Pulse Rate [ Right Dorsalis Pedis] Pulse Rate [ Right Radial] Respiratory 14 15 13 Rate Blood Pressure 119/46 119/46 119/46 O2 Sat by Pulse 98 99 98 Oximetry 03/25/18 03/25/18 03/25/18 00:34 00:40 00:50 Temperature Pulse Rate 83 93 H 94 H Pulse Rate [ 77 From Monitor] Pulse Rate [ 77 Left Dorsalis Pedis] Pulse Rate [ 77 Left Radial] Pulse Rate [ 77 Right Dorsalis Pedis] Pulse Rate [ 77 Right Radial] Respiratory 16 16 14 Rate Blood Pressure 119/46 119/46 O2 Sat by Pulse 100 98 97 Oximetry 03/25/18 03/25/18 03/25/18 01:00 01:10 01:20 Temperature Pulse Rate 83 81 65 Pulse Rate [ From Monitor] Pulse Rate [ Left Dorsalis Pedis] Pulse Rate [ Left Radial] Pulse Rate [ Right Dorsalis Pedis] Pulse Rate [ Right Radial] Respiratory 34 H 15 18 Rate Blood Pressure 129/55 129/55 129/55 O2 Sat by Pulse 96 97 99 Oximetry 03/25/18 03/25/18 03/25/18 01:30 01:34 01:40 Temperature Pulse Rate 71 83 74 Pulse Rate [ 77 From Monitor] Pulse Rate [ 77 Left Dorsalis Pedis] Pulse Rate [ 77 Left Radial] Pulse Rate [ 77 Right Dorsalis Pedis] Pulse Rate [ 77 Right Radial] Respiratory 14 16 15 Rate Blood Pressure 129/55 129/55 O2 Sat by Pulse 98 100 98 Oximetry 03/25/18 03/25/18 03/25/18 01:50 02:00 02:10 Temperature Pulse Rate 76 78 71 Pulse Rate [ From Monitor] Pulse Rate [ Left Dorsalis Pedis] Pulse Rate [ Left Radial] Pulse Rate [ Right Dorsalis Pedis] Pulse Rate [ Right Radial] Respiratory 16 15 15 Rate Blood Pressure 129/55 129/55 120/54 O2 Sat by Pulse 99 98 98 Oximetry 03/25/18 03/25/18 03/25/18 02:20 02:30 02:40 Temperature Pulse Rate 91 H 83 73 Pulse Rate [ From Monitor] Pulse Rate [ Left Dorsalis Pedis] Pulse Rate [ Left Radial] Pulse Rate [ Right Dorsalis Pedis] Pulse Rate [ Right Radial] Respiratory 23 15 12 Rate Blood Pressure 120/54 120/54 120/54 O2 Sat by Pulse 98 98 99 Oximetry 03/25/18 03/25/18 03/25/18 02:50 03:00 03:10 Temperature Pulse Rate 86 75 66 Pulse Rate [ From Monitor] Pulse Rate [ Left Dorsalis Pedis] Pulse Rate [ Left Radial] Pulse Rate [ Right Dorsalis Pedis] Pulse Rate [ Right Radial] Respiratory 17 14 14 Rate Blood Pressure 120/54 120/54 131/44 O2 Sat by Pulse 100 98 99 Oximetry 03/25/18 03/25/18 03/25/18 03:20 03:30 03:34 Temperature 98.8 F Pulse Rate 66 68 Pulse Rate [ From Monitor] Pulse Rate [ Left Dorsalis Pedis] Pulse Rate [ Left Radial] Pulse Rate [ Right Dorsalis Pedis] Pulse Rate [ Right Radial] Respiratory 15 15 Rate Blood Pressure 120/54 131/44 O2 Sat by Pulse 99 99 Oximetry 03/25/18 03/25/18 03/25/18 03:40 03:50 04:00 Temperature Pulse Rate 75 71 91 H Pulse Rate [ From Monitor] Pulse Rate [ Left Dorsalis Pedis] Pulse Rate [ Left Radial] Pulse Rate [ Right Dorsalis Pedis] Pulse Rate [ Right Radial] Respiratory 16 15 17 Rate Blood Pressure 131/44 120/59 O2 Sat by Pulse 99 98 96 Oximetry 03/25/18 03/25/18 03/25/18 04:10 04:20 04:30 Temperature Pulse Rate 87 88 70 Pulse Rate [ From Monitor] Pulse Rate [ Left Dorsalis Pedis] Pulse Rate [ Left Radial] Pulse Rate [ Right Dorsalis Pedis] Pulse Rate [ Right Radial] Respiratory 15 13 14 Rate Blood Pressure 120/59 120/59 120/59 O2 Sat by Pulse 98 100 97 Oximetry 03/25/18 03/25/18 03/25/18 04:40 04:50 05:00 Temperature Pulse Rate 76 76 74 Pulse Rate [ From Monitor] Pulse Rate [ Left Dorsalis Pedis] Pulse Rate [ Left Radial] Pulse Rate [ Right Dorsalis Pedis] Pulse Rate [ Right Radial] Respiratory 14 14 16 Rate Blood Pressure 120/59 120/59 120/59 O2 Sat by Pulse 97 96 97 Oximetry 03/25/18 03/25/18 03/25/18 05:10 05:20 05:30 Temperature Pulse Rate 71 85 75 Pulse Rate [ From Monitor] Pulse Rate [ Left Dorsalis Pedis] Pulse Rate [ Left Radial] Pulse Rate [ Right Dorsalis Pedis] Pulse Rate [ Right Radial] Respiratory 13 13 15 Rate Blood Pressure 139/52 139/52 139/52 O2 Sat by Pulse 96 99 98 Oximetry 03/25/18 03/25/18 03/25/18 05:40 05:50 06:00 Temperature Pulse Rate 70 98 H 66 Pulse Rate [ From Monitor] Pulse Rate [ Left Dorsalis Pedis] Pulse Rate [ Left Radial] Pulse Rate [ Right Dorsalis Pedis] Pulse Rate [ Right Radial] Respiratory 16 13 15 Rate Blood Pressure 139/52 139/52 139/52 O2 Sat by Pulse 99 100 100 Oximetry 03/25/18 08:13 Temperature Pulse Rate Pulse Rate [ From Monitor] Pulse Rate [ Left Dorsalis Pedis] Pulse Rate [ Left Radial] Pulse Rate [ Right Dorsalis Pedis] Pulse Rate [ Right Radial] Respiratory Rate Blood Pressure O2 Sat by Pulse 100 Oximetry Constitutional: no acute distress, alert, other (elderly looking female, normocephalic and atraumatic) Eyes: non-icteric ENT: oropharynx moist Neck: supple, no lymphadenopathy Effort: mildly labored Ascultation: Bilateral: clear, diminished breath sounds Percussion: Bilateral: not dull Cardiovascular: regular rate and rhythm Gastrointestinal: normoactive bowel sounds, soft, non-tender, non-distended Integumentary: normal Extremities: no cyanosis, no edema, pulses normal, no ischemia or petechiae Neurologic: normal mental status, non-focal exam (grossly), pupils equal and round, CN II-XII normal Psychiatric: mood appropriate, affect normal CBC and BMP: 03/26/18 06:41 03/27/18 04:33 ABG, PT/INR, D-dimer: PT/INR, D-dimer PT 14.0 Sec. (12.2-14.9) 03/23/18 19:48 INR 1.04 (0.87-1.13) 03/23/18 19:48 Abnormal lab findings: Abnormal Labs 03/23/18 03/23/18 03/23/18 19:36 19:48 19:48 RBC 3.13 L Hgb 9.0 L Hct 28.3 L RDW 17.0 H Plt Count 923 H [place] % (Auto) 12.2 H Sodium 132 L Chloride 96.5 L BUN 21 H Glucose 157 H POC Glucose 173 H Hemoglobin A1c HDL Cholesterol 03/24/18 03/24/18 03/24/18 09:53 15:53 20:39 RBC Hgb Hct RDW Plt Count [place] % (Auto) Sodium Chloride BUN Glucose POC Glucose 112 H Hemoglobin A1c 7.4 H HDL Cholesterol 32 L Chest x-ray: image reviewed Allied health notes reviewed: nursing
--- NOTE | 2018-03-25 15:51 | Progress Note ---
Assessment and Plan TIA - Acute cerebrovascular accident, ruled out with negative workup - status post TPA, MRI brain ahowed no acute infract - cont post tPA stroke protocol, consulted neuro - starte aspirin and statin History of hypertension. - BP stable, cont to monitor Adult failure to thrive. - PT eval, diet consult Hypothyroidism. - start synthroid Congestive heart failure with rEF 15% - compensated now Gastroesophageal reflux disease, PPI Mild hyponatremia, gentle hydration for now Anemia normocytic, monitor h/H, will check iron level DM type 2, new onset? - A1c 7.2, will place on SSI Brief history: 87-year-old female with past medical history of recent CVA and placed on SNF from [facility] [place] on [place] 19, hypothyroidism, hypertension, heart failure, and GERD presents to the hospital with stroke symptoms Last known well time was 6:30 PM per the SON. Pt developed slurred speech and possible left-sided weakness. She was given TPA in the ER as she was in the therapeutic window. Admitted with stroke protocol. Physical exam: General appearance: Present: no acute distress, malnourished elderly female - EENT Eyes: PERRL, EOM intact ENT: hearing intact, clear oral mucosa Ears: bilateral: normal - Neck Neck: supple, normal ROM - Respiratory Respiratory effort: normal Respiratory: bilateral: CTA - Cardiovascular Rhythm: regular Heart Sounds: Present: S1 & S2. Absent: gallop, rub Extremities: pulses intact, No edema, normal color, Full ROM - Gastrointestinal General gastrointestinal: Present: soft, non-tender, non-distended, normal bowel sounds - Genitourinary Female genitourinary: normal - Integumentary Integumentary: clear, warm, dry - Musculoskeletal Musculoskeletal: 1, strength equal bilaterally - Neurologic Neurologic: moves all extremities - Psychiatric Psychiatric: memory intact, appropriate mood/affect, intact judgment & insight Subjective Date of service: 03/25/18 Principal diagnosis: TIA Interval history: Pt seen and examined, follows commend, denies any chest pain or SOB Updated family at bedside transfer out of ICU today Objective - Constitutional Vitals: Vital Signs - 12hr 03/25/18 03/25/18 03/25/18 04:00 04:10 04:20 Temperature Pulse Rate 91 H 87 88 Respiratory 17 15 13 Rate Blood Pressure 120/59 120/59 120/59 O2 Sat by Pulse 96 98 100 Oximetry 01/03/25/18 03/25/18 04:30 04:40 04:50 Temperature Pulse Rate 70 76 76 Respiratory 14 14 14 Rate Blood Pressure 120/59 120/59 120/59 O2 Sat by Pulse 97 97 96 Oximetry 03/25/18 03/25/18 03/25/18 05:00 05:10 05:20 Temperature Pulse Rate 74 71 85 Respiratory 16 13 13 Rate Blood Pressure 120/59 139/52 139/52 O2 Sat by Pulse 97 96 99 Oximetry 03/25/18 03/25/18 03/25/18 05:30 05:40 05:50 Temperature Pulse Rate 75 70 98 H Respiratory 15 16 13 Rate Blood Pressure 139/52 139/52 139/52 O2 Sat by Pulse 98 99 100 Oximetry 03/25/18 03/25/18 03/25/18 06:00 08:13 12:00 Temperature 98.4 F Pulse Rate 66 Respiratory 15 Rate Blood Pressure 139/52 O2 Sat by Pulse 100 100 Oximetry - Labs CBC & Chem 7: 03/26/18 06:41 03/26/18 06:41 Labs: Abnormal lab results 03/24/18 03/24/18 Range/Units 15:53 20:39 Hemoglobin A1c 7.4 H (4-6) % HDL Cholesterol 32 L (40-59) mg/dL
[2018-03-26 07:18] LABS: BUN/Creatinine Ratio 16; Blood Urea Nitrogen 8 mg/dL (7-17); Hemolysis Index 3
[2018-03-26 07:19] LABS: Basophils % (Auto) 0.5 % (0.0-1.8); Eosinophils # (Auto) 0.2 K/mm3 (0.0-0.4); Eosinophils % (Auto) 2.9 % (0.0-4.3); Hematocrit 26.6 % (30.3-42.9); Hemoglobin 8.6 gm/dl (10.1-14.3); Lymphocytes # (Auto) 1.3 K/mm3 (1.2-5.4); Lymphocytes % (Auto) 23.9 % (13.4-35.0); Mean Corpuscular HGB Conc 32 % (30-34); Mean Corpuscular Volume 91 fl (79-97); Monocytes # (Auto) 0.6 K/mm3 (0.0-0.8); Monocytes % (Auto) 10.5 % (0.0-7.3); Platelet Count 689 K/mm3 (140-440); Red Blood Count 2.94 M/mm3 (3.65-5.03)
[2018-03-26] MEDS: PROTONIX IV SCH (09:38)
[2018-03-26] MEDS: ASPIRIN PO SCH (09:38)
[2018-03-26] MEDS: LOVENOX SUB-Q SCH (09:38)
[2018-03-26] MEDS ORDERED: NON-FORMULARY (Omeprazole 40 MG) PO SCH (11:15)
[2018-03-26 12:37] LABS: Iron 17 ug/dL (37-170); Total Iron Binding Capacity 198 mcg/dL (250-450)
[2018-03-26] MEDS: D5NS 1,000 ML IV SCH (14:34)
--- NOTE | 2018-03-26 18:15 | Progress Note ---
Assessment and Plan TIA - Acute cerebrovascular accident, ruled out with negative workup - status post TPA, MRI brain ahowed no acute infract - cont post tPA stroke protocol, consulted neuro - started on aspirin and statin History of hypertension. - BP stable, cont to monitor Adult failure to thrive with Severe PCM - follow dietary/nutrition recommendation. - PT eval, diet consult Hypothyroidism. - start synthroid Congestive heart failure with rEF 15% - compensated now Gastroesophageal reflux disease, PPI Mild hyponatremia, gentle hydration for now Anemia normocytic, monitor h/H, will check iron level DM type 2, new onset? - A1c 7.2, will place on SSI Brief history: 87-year-old female with past medical history of recent CVA and [place] [facility] [place] hypothyroidism, hypertension, heart failure, and GERD presents to the hospital with stroke symptoms Last known well time was 6:30 PM per the SON. Pt developed slurred speech and possible left-sided weakness. She was given TPA in the ER as she was in the therapeutic window. Admitted with stroke protocol. Physical exam: General appearance: Present: no acute distress, malnourished elderly female - EENT Eyes: PERRL, EOM intact ENT: hearing intact, clear oral mucosa Ears: bilateral: normal - Neck Neck: supple, normal ROM - Respiratory Respiratory effort: normal Respiratory: bilateral: CTA - Cardiovascular Rhythm: regular Heart Sounds: Present: S1 & S2. Absent: gallop, rub Extremities: pulses intact, No edema, normal color, Full ROM - Gastrointestinal General gastrointestinal: Present: soft, non-tender, non-distended, normal bowel sounds - Genitourinary Female genitourinary: normal - Integumentary Integumentary: clear, warm, dry - Musculoskeletal Musculoskeletal: 1, strength equal bilaterally - Neurologic Neurologic: moves all extremities - Psychiatric Psychiatric: memory intact, appropriate mood/affect, intact judgment & insight Subjective Date of service: 03/26/18 Principal diagnosis: TIA Interval history: Pt seen and examined, follows commend, denies any chest pain or SOB eating lunch, no new acute issue Objective - Constitutional Vitals: Vital Signs - 12hr 03/26/18 03/26/18 03/26/18 08:23 08:25 12:40 Temperature 97.8 F 98.1 F Pulse Rate 104 H Respiratory 18 18 Rate Blood Pressure 132/57 Blood Pressure 132/57 [Left] O2 Sat by Pulse 100 Oximetry 03/26/18 03/26/18 12:41 17:22 Temperature 98.3 F Pulse Rate 44 L 97 H Respiratory 18 18 Rate Blood Pressure 148/58 137/58 Blood Pressure [Left] O2 Sat by Pulse 73 L 100 Oximetry - Labs CBC & Chem 7: 03/26/18 06:41 03/27/18 04:33 Labs: Abnormal lab results 03/26/18 03/26/18 03/26/18 Range/Units 06:41 06:41 11:01 RBC 2.94 L (3.65-5.03) M/mm3 Hgb 8.6 L (10.1-14.3) gm/dl Hct 26.6 L (30.3-42.9) % RDW 17.0 H (13.2-15.2) % Plt Count 689 H (140-440) K/mm3 [place] % (Auto) 10.5 H (0.0-7.3) % Sodium 146 H D (137-145) mmol/L Chloride 109.6 H (98-107) mmol/L Carbon Dioxide 20 L (22-30) mmol/L Creatinine 0.5 L (0.7-1.2) mg/dL Glucose 129 H (65-100) mg/dL Calcium 8.0 L (8.4-10.2) mg/dL Iron 17 L (37-170) ug/dL TIBC 198 L (250-450) mcg/dL Vitamin B12 (211-911) pg/mL 03/26/18 Range/Units 11:01 RBC (3.65-5.03) M/mm3 Hgb (10.1-14.3) gm/dl Hct (30.3-42.9) % RDW (13.2-15.2) % Plt Count (140-440) K/mm3 [place] % (Auto) (0.0-7.3) % Sodium (137-145) mmol/L Chloride (98-107) mmol/L Carbon Dioxide (22-30) mmol/L Creatinine (0.7-1.2) mg/dL Glucose (65-100) mg/dL Calcium (8.4-10.2) mg/dL Iron (37-170) ug/dL TIBC (250-450) mcg/dL Vitamin B12 > 2000 H (211-911) pg/mL
--- NOTE | 2018-03-26 19:12 | Progress Note ---
Assessment and Plan Patient alert, awake.resting on room air.O2 saturation 100%. No complaint of chest pain or shortness of breath or cough. - Patient Problems (1) Acute CVA (cerebrovascular accident) Current Visit: Yes Status: Acute Plan to address problem: Management as per neurology. (2) Slurred speech Current Visit: Yes Status: Acute Plan to address problem: Aspiration precautions. Obtaining chest xray. Subjective Date of service: 03/26/18 Principal diagnosis: TIA Interval history: Patient alert, awake.resting on room air.O2 saturation 100%. No complaint of chest pain or shortness of breath or cough. Objective Vital Signs - 12hr 03/26/18 03/26/18 03/26/18 08:23 08:25 12:40 Temperature 97.8 F 98.1 F Pulse Rate 104 H Respiratory 18 18 Rate Blood Pressure 132/57 Blood Pressure 132/57 [Left] O2 Sat by Pulse 100 Oximetry 03/26/18 03/26/18 12:41 17:22 Temperature 98.3 F Pulse Rate 44 L 97 H Respiratory 18 18 Rate Blood Pressure 148/58 137/58 Blood Pressure [Left] O2 Sat by Pulse 73 L 100 Oximetry Constitutional: no acute distress, alert Eyes: non-icteric ENT: oropharynx moist Neck: supple, no lymphadenopathy Ascultation: Bilateral: clear Cardiovascular: regular rate and rhythm Gastrointestinal: normoactive bowel sounds, soft Integumentary: normal Extremities: no cyanosis, no edema Neurologic: normal mental status, pupils equal and round, other (Left sided weakness.) Psychiatric: mood appropriate CBC and BMP: 03/26/18 06:41 03/26/18 06:41 ABG, PT/INR, D-dimer: PT/INR, D-dimer PT 14.0 Sec. (12.2-14.9) 03/23/18 19:48 INR 1.04 (0.87-1.13) 03/23/18 19:48 Abnormal lab findings: Abnormal Labs 03/23/18 03/23/18 03/23/18 19:36 19:48 19:48 RBC 3.13 L Hgb 9.0 L Hct 28.3 L RDW 17.0 H Plt Count 923 H [place] % (Auto) 12.2 H Sodium 132 L Chloride 96.5 L Carbon Dioxide BUN 21 H Creatinine Glucose 157 H POC Glucose 173 H Hemoglobin A1c Calcium Iron TIBC HDL Cholesterol Vitamin B12 03/24/18 03/24/18 03/24/18 09:53 15:53 20:39 RBC Hgb Hct RDW Plt Count [place] % (Auto) Sodium Chloride Carbon Dioxide BUN Creatinine Glucose POC Glucose 112 H Hemoglobin A1c 7.4 H Calcium Iron TIBC HDL Cholesterol 32 L Vitamin B12 03/26/18 03/26/18 03/26/18 06:41 06:41 11:01 RBC 2.94 L Hgb 8.6 L Hct 26.6 L RDW 17.0 H Plt Count 689 H [place] % (Auto) 10.5 H Sodium 146 H D Chloride 109.6 H Carbon Dioxide 20 L BUN Creatinine 0.5 L Glucose 129 H POC Glucose Hemoglobin A1c Calcium 8.0 L Iron 17 L TIBC 198 L HDL Cholesterol Vitamin B12 03/26/18 11:01 RBC Hgb Hct RDW Plt Count [place] % (Auto) Sodium Chloride Carbon Dioxide BUN Creatinine Glucose POC Glucose Hemoglobin A1c Calcium Iron TIBC HDL Cholesterol Vitamin B12 > 2000 H
[2018-03-27] MEDS: SYNTHROID PO SCH (06:18)
[2018-03-27 06:35] LABS: BUN/Creatinine Ratio 16; Blood Urea Nitrogen 8 mg/dL (7-17); Hemolysis Index 3
--- NOTE | 2018-03-27 09:03 | Progress Note ---
Assessment and Plan Acute cerebrovascular accident, status post TPA History of hypertension. Adult failure to thrive. Hypothyroidism. Congestive heart failure, compensated with low ejection fraction. Gastroesophageal reflux disease. Mild hyponatremia. Anemia that is normocytic. Elevated serum BUN Hyperglycemia. -Continue with secondary stroke prophylaxis -Aspiration precautions -Modified diet -PT/OT, increase activity -Chronic home medications -Discharge planning Subjective Date of service: 03/27/18 Principal diagnosis: TIA Interval history: Patient is seen today for: CVA s/p TPA; Hypertension; moderate protein calorie malnutrition Seen and examined at bedside; 24hour events reviewed; nursing and respiratory care staff consulted; no adverse overnight events reported to me. She is sitting up in bed on a modified diet. Denies any chest pain, no shortness of breath, no cough. family is at the bedside. "I feel 100% better than when I came" Objective Vital Signs - 12hr 03/26/18 03/26/18 03/27/18 22:00 23:57 04:15 Temperature 98.3 F 98.1 F Pulse Rate 101 H 90 Pulse Rate [ 90 Right Radial] Respiratory 17 18 18 Rate Blood Pressure 142/64 140/51 O2 Sat by Pulse 100 100 Oximetry 03/27/18 07:47 Temperature 98.2 F Pulse Rate 98 H Pulse Rate [ Right Radial] Respiratory 18 Rate Blood Pressure 124/52 O2 Sat by Pulse 99 Oximetry Constitutional: no acute distress, alert, other (thin) Eyes: non-icteric ENT: oropharynx moist Neck: supple, no lymphadenopathy Effort: normal Ascultation: Bilateral: clear Cardiovascular: regular rate and rhythm, other (S1,S2, no murmurs, gallopsor rubs) Gastrointestinal: normoactive bowel sounds, soft Integumentary: normal Extremities: no cyanosis, no edema Neurologic: normal mental status, non-focal exam, pupils equal and round, other Psychiatric: mood appropriate, affect normal CBC and BMP: 03/26/18 06:41 03/27/18 04:33 ABG, PT/INR, D-dimer: PT/INR, D-dimer PT 14.0 Sec. (12.2-14.9) 03/23/18 19:48 INR 1.04 (0.87-1.13) 03/23/18 19:48 Abnormal lab findings: Abnormal Labs 03/23/18 03/23/18 03/23/18 19:36 19:48 19:48 RBC 3.13 L Hgb 9.0 L Hct 28.3 L RDW 17.0 H Plt Count 923 H [place] % (Auto) 12.2 H Sodium 132 L Chloride 96.5 L Carbon Dioxide BUN 21 H Creatinine Glucose 157 H POC Glucose 173 H Hemoglobin A1c Calcium Iron TIBC HDL Cholesterol Vitamin B12 03/24/18 03/24/18 03/24/18 09:53 15:53 20:39 RBC Hgb Hct RDW Plt Count [place] % (Auto) Sodium Chloride Carbon Dioxide BUN Creatinine Glucose POC Glucose 112 H Hemoglobin A1c 7.4 H Calcium Iron TIBC HDL Cholesterol 32 L Vitamin B12 03/26/18 03/26/18 03/26/18 06:41 06:41 11:01 RBC 2.94 L Hgb 8.6 L Hct 26.6 L RDW 17.0 H Plt Count 689 H [place] % (Auto) 10.5 H Sodium 146 H D Chloride 109.6 H Carbon Dioxide 20 L BUN Creatinine 0.5 L Glucose 129 H POC Glucose Hemoglobin A1c Calcium 8.0 L Iron 17 L TIBC 198 L HDL Cholesterol Vitamin B12 03/26/18 03/27/18 11:01 04:33 RBC Hgb Hct RDW Plt Count [place] % (Auto) Sodium Chloride 107.7 H Carbon Dioxide BUN Creatinine 0.5 L Glucose 140 H POC Glucose Hemoglobin A1c Calcium 8.0 L Iron TIBC HDL Cholesterol Vitamin B12 > 2000 H
--- NOTE | 2018-03-27 09:42 | XRay Report ---
CHEST 2 VIEWS INDICATION: Possible aspiration. COMPARISON: None similar. FINDINGS: Frontal and lateral chest radiographs suggest slight cardiomegaly. Small bibasilar hazy pleural effusions with costophrenic angle blunting also noted. No cephalization. Dense aortic knob calcifications. EKG leads. Osteopenia/osteoporosis with various bony degenerative changes, including multilevel spinal. Small surgical clip in the right thyroid region also incidentally seen. CONCLUSION: Small bibasilar pleural effusions and cardiomegaly possible with few other findings, as above. Please correlate. Thank you for the opportunity to participate in this patient's care.
[2018-03-27] MEDS ORDERED: NON-FORMULARY (Levothyroxine 75 MCG) PO SCH (10:00)
[2018-03-27] MEDS ORDERED: NON-FORMULARY (Omeprazole 40 MG) PO SCH (10:00)
[2018-03-27] MEDS ORDERED: OXYBUTYNIN 5 MG PO SCH (10:00)
[2018-03-27] MEDS: ASPIRIN PO SCH (10:04)
[2018-03-27] MEDS: DITROPAN PO SCH (10:04)
[2018-03-27] MEDS: PROTONIX PO SCH (10:04)
[2018-03-27] MEDS: LOVENOX SUB-Q SCH (10:04)
--- NOTE | 2018-03-27 13:56 | Discharge Summary ---
Providers - Providers Date of Admission: 03/23/18 22:56 Date of discharge: 03/28/18 Attending physician: OSITO GARNETT 03/24/18 06:00 Consult to Physician [CONS] Routine Comment: Consulting Provider: ISABELLA ZHONG Physician Instructions: Reason For Exam: ACUTE CVA Physical Therapy Evaluation and Treat [CONS] Routine Comment: Reason For Exam: CVA WITH LEFT SIDED WEAKNESS Speech Therapy Evaluation and Treat [CONS] Routine Reason For Exam: SLURRED SPEECH AND CVA 03/24/18 15:31 Consult to Physician [CONS] Routine Comment: Consulting Provider: LUPE CORDERO Physician Instructions: Reason For Exam: critical care 03/24/18 18:55 Occupational Therapy Evaluate and Treat [CONS] Routine Comment: Reason For Exam: left arm weakness, TIA Primary care physician: ROSEANN GANN Hospitalization Reason for admission: possible CVA Condition: Stable Pertinent studies: Head CT Neck CTA head CTA Carotid doppler Brain MRI CXR 2d echo Hospital course: Brief history: 87-year-old female with past medical history of recent CVA and placed on SNF [place] [facility] [place], hypothyroidism, hypertension, heart failure, and GERD presents to the hospital with stroke symptoms Last known well time was 6:30 PM per the SON. Pt developed slurred speech and possible left-sided weakness. She was given TPA in the ER as she was in the therapeutic window. Admitted with stroke protocol. her stroke workup was negative. PT recommended RAVINDER. She was then discharged in stable condition. Discharge diagnosis and management: TIA - Acute cerebrovascular accident, ruled out with negative workup - status post TPA, MRI brain ahowed no acute infract - cont post tPA stroke protocol, consulted neuro - started on aspirin and statin History of hypertension. - BP stable, cont to monitor Adult failure to thrive with Severe PCM - consulted dietary/nutrition recommendation. - s/p PT eval, recommended subacute rehab Hypothyroidism. - started on synthroid Congestive heart failure with rEF 15% - compensated now Gastroesophageal reflux disease, PPI Mild hyponatremia, improved with gentle hydration Anemia normocytic, monitored h/H, normal b12/folate, on iron supplement DM type 2, new onset? - A1c 7.2, placed on SSI Physical exam: General appearance: Present: no acute distress, malnourished elderly female - EENT Eyes: PERRL, EOM intact ENT: hearing intact, clear oral mucosa Ears: bilateral: normal - Neck Neck: supple, normal ROM - Respiratory Respiratory effort: normal Respiratory: bilateral: CTA - Cardiovascular Rhythm: regular Heart Sounds: Present: S1 & S2. Absent: gallop, rub Extremities: pulses intact, No edema, normal color, Full ROM - Gastrointestinal General gastrointestinal: Present: soft, non-tender, non-distended, normal bowel sounds - Genitourinary Female genitourinary: normal - Integumentary Integumentary: clear, warm, dry - Musculoskeletal Musculoskeletal: 1, strength equal bilaterally - Neurologic Neurologic: moves all extremities - Psychiatric Psychiatric: memory intact, appropriate mood/affect, intact judgment & insight Disposition: DC/[place]-03 SNF [facility] Time spent for discharge: 34 minutes Core Measure Documentation - Palliative Care Palliative Care/ Comfort Measures: Not Applicable - Core Measures Any of the following diagnoses?: stroke - Stroke Discharge Requirements Statin for LDL = or >70 mg/dl on DC: No Anticoag for atrial fib/atrial flutter: Not Applicable Antithrombotic for ischemic stroke: Yes Exam - Constitutional Vitals: Temp Pulse Resp BP Pulse Ox 97.9 F 96 H 19 126/91 99 03/27/18 12:25 03/27/18 12:25 03/27/18 12:25 03/27/18 12:25 03/27/18 10:00 Plan Activity: advance as tolerated, fall precautions Weight Bearing Status: Non-Weight Bearing Diet: diabetic Follow up with: ROSEANN GANN MD [Primary Care Provider] - 7 Days Prescriptions: Aspirin [Aspirin BABY CHEW TAB] 81 mg PO QDAY #30 tab.chew
[2018-03-27] MEDS ORDERED: FLEET PR ONE (18:45)
[2018-03-27] MEDS: MILK OF MAGNESIA PO PRN (22:37)
[2018-03-28] MEDS ORDERED: FLEET PR ONE
[2018-03-28] MEDS: MILK OF MAGNESIA PO PRN (06:00)
[2018-03-28] MEDS: SYNTHROID PO SCH (06:00)
[2018-03-28] MEDS ORDERED: TYLENOL PO PRN (06:12)
[2018-03-28] MEDS: ASPIRIN PO SCH (09:45)
[2018-03-28] MEDS: PROTONIX PO SCH (09:45)
[2018-03-28] MEDS: LOVENOX SUB-Q SCH (09:45)
[2018-03-28] MEDS: DITROPAN PO SCH (09:45)
--- NOTE | 2018-03-28 11:12 | Progress Note ---
Assessment and Plan Acute cerebrovascular accident, status post TPA History of hypertension. Adult failure to thrive. Hypothyroidism. Congestive heart failure, compensated with low ejection fraction. Gastroesophageal reflux disease. Mild hyponatremia. Anemia that is normocytic. Elevated serum BUN Hyperglycemia. -Continue with secondary stroke prophylaxis -Aspiration precautions -Modified diet -PT/OT, increase activity -Chronic home medications -Discharge planning Subjective Date of service: 03/28/18 Principal diagnosis: TIA Interval history: Patient is seen today for: CVA s/p TPA; Hypertension; moderate protein calorie malnutrition Seen and examined at bedside; 24hour events reviewed; nursing and respiratory care staff consulted; no adverse overnight events reported to me. She is sleeping but rousable. Denies any chest pain, no shortness of breath, no cough. Objective Vital Signs - 12hr 03/28/18 03/28/18 03/28/18 00:36 04:00 06:40 Temperature 98.4 F 98.2 F Pulse Rate 98 H 93 H Pulse Rate [ Apical] Pulse Rate [ From Monitor] Respiratory 18 18 20 Rate Blood Pressure 121/59 123/52 O2 Sat by Pulse 99 97 Oximetry 03/28/18 03/28/18 03/28/18 07:40 08:23 08:24 Temperature 98.2 F Pulse Rate 85 Pulse Rate [ Apical] Pulse Rate [ From Monitor] Respiratory 18 20 Rate Blood Pressure 121/43 O2 Sat by Pulse 100 Oximetry 03/28/18 09:56 Temperature Pulse Rate Pulse Rate [ 100 H Apical] Pulse Rate [ 98 H From Monitor] Respiratory 20 Rate Blood Pressure O2 Sat by Pulse 100 Oximetry Constitutional: no acute distress, alert, other (thin) Eyes: non-icteric ENT: oropharynx moist Neck: supple, no lymphadenopathy Effort: normal Ascultation: Bilateral: clear Cardiovascular: regular rate and rhythm, other (S1,S2, no murmurs, gallops or rubs) Gastrointestinal: normoactive bowel sounds, soft Integumentary: normal Extremities: no cyanosis, no edema Neurologic: normal mental status, non-focal exam, pupils equal and round, other Psychiatric: mood appropriate, affect normal CBC and BMP: 03/26/18 06:41 03/27/18 04:33 ABG, PT/INR, D-dimer: PT/INR, D-dimer PT 14.0 Sec. (12.2-14.9) 03/23/18 19:48 INR 1.04 (0.87-1.13) 03/23/18 19:48 Abnormal lab findings: Abnormal Labs 03/23/18 03/23/18 03/23/18 19:36 19:48 19:48 RBC 3.13 L Hgb 9.0 L Hct 28.3 L RDW 17.0 H Plt Count 923 H [place] % (Auto) 12.2 H Sodium 132 L Chloride 96.5 L Carbon Dioxide BUN 21 H Creatinine Glucose 157 H POC Glucose 173 H Hemoglobin A1c Calcium Iron TIBC HDL Cholesterol Vitamin B12 03/24/18 03/24/18 03/24/18 09:53 15:53 20:39 RBC Hgb Hct RDW Plt Count [place] % (Auto) Sodium Chloride Carbon Dioxide BUN Creatinine Glucose POC Glucose 112 H Hemoglobin A1c 7.4 H Calcium Iron TIBC HDL Cholesterol 32 L Vitamin B12 03/26/18 03/26/18 03/26/18 06:41 06:41 11:01 RBC 2.94 L Hgb 8.6 L Hct 26.6 L RDW 17.0 H Plt Count 689 H [place] % (Auto) 10.5 H Sodium 146 H D Chloride 109.6 H Carbon Dioxide 20 L BUN Creatinine 0.5 L Glucose 129 H POC Glucose Hemoglobin A1c Calcium 8.0 L Iron 17 L TIBC 198 L HDL Cholesterol Vitamin B12 03/26/18 03/27/18 03/27/18 11:01 04:33 10:43 RBC Hgb Hct RDW Plt Count [place] % (Auto) Sodium Chloride 107.7 H Carbon Dioxide BUN Creatinine 0.5 L Glucose 140 H POC Glucose 138 H Hemoglobin A1c Calcium 8.0 L Iron TIBC HDL Cholesterol Vitamin B12 > 2000 H
--- NOTE | 2018-03-28 12:10 | Progress Note ---
Assessment and Plan TIA - Acute cerebrovascular accident, ruled out with negative workup - status post TPA, MRI brain ahowed no acute infract - cont post tPA stroke protocol, consulted neuro - started on aspirin and statin History of hypertension. - BP stable, cont to monitor Adult failure to thrive with Severe PCM - follow dietary/nutrition recommendation. - PT eval, diet consult Hypothyroidism. - start synthroid Congestive heart failure with rEF 15% - compensated now Gastroesophageal reflux disease, PPI Mild hyponatremia, gentle hydration for now Anemia normocytic, monitor h/H, will check iron level DM type 2, new onset? - A1c 7.2, cont on SSI Disposition: pending placement Brief history: 87-year-old female with past medical history of recent CVA and [place] [facility] [place], hypothyroidism, hypertension, heart failure, and GERD presents to the hospital with stroke symptoms Last known well time was 6:30 PM per the SON. Pt developed slurred speech and possible left-sided weakness. She was given TPA in the ER as she was in the therapeutic window. Admitted with stroke protocol. Physical exam: General appearance: Present: no acute distress, malnourished elderly female - EENT Eyes: PERRL, EOM intact ENT: hearing intact, clear oral mucosa Ears: bilateral: normal - Neck Neck: supple, normal ROM - Respiratory Respiratory effort: normal Respiratory: bilateral: CTA - Cardiovascular Rhythm: regular Heart Sounds: Present: S1 & S2. Absent: gallop, rub Extremities: pulses intact, No edema, normal color, Full ROM - Gastrointestinal General gastrointestinal: Present: soft, non-tender, non-distended, normal bowel sounds - Genitourinary Female genitourinary: normal - Integumentary Integumentary: clear, warm, dry - Musculoskeletal Musculoskeletal: 1, strength equal bilaterally - Neurologic Neurologic: moves all extremities - Psychiatric Psychiatric: memory intact, appropriate mood/affect, intact judgment & insight Subjective Date of service: 03/27/18 Principal diagnosis: TIA Interval history: Pt seen and examined, follows commend, denies any chest pain or SOB, no new acute issue Objective - Constitutional Vitals: Vital Signs - 12hr 03/28/18 03/28/18 03/28/18 00:36 04:00 06:40 Temperature 98.4 F 98.2 F Pulse Rate 98 H 93 H Pulse Rate [ Apical] Pulse Rate [ From Monitor] Respiratory 18 18 20 Rate Blood Pressure 121/59 123/52 O2 Sat by Pulse 99 97 Oximetry 03/28/18 03/28/18 03/28/18 07:40 08:23 08:24 Temperature 98.2 F Pulse Rate 85 Pulse Rate [ Apical] Pulse Rate [ From Monitor] Respiratory 18 20 Rate Blood Pressure 121/43 O2 Sat by Pulse 100 Oximetry 03/28/18 09:56 Temperature Pulse Rate Pulse Rate [ 100 H Apical] Pulse Rate [ 98 H From Monitor] Respiratory 20 Rate Blood Pressure O2 Sat by Pulse 100 Oximetry - Labs CBC & Chem 7: 03/26/18 06:41 03/27/18 04:33
[2018-03-30 11:38] VITALS: BP 121/43
[2018-04-03 10:16] LABS: Prealbumin < 0.030 g/L (0.200-0.400)
== END 2018-03-28 14:42 | DRG 61 ==
LOC: ED 19:31 → CC1 22:56 → 4A 03-25 16:16
PROVIDERS: ADMIT Internal Medicine; ATTEND Internal Medicine
DX: G45.9 Transient cerebral ischemic attack, unspecified (principal); E87.1 Hypo-osmolality and hyponatremia; E43 Unspecified severe protein-calorie malnutrition; Z68.1 Body mass index [BMI] 19.9 or less, adult; I50.22 Chronic systolic (congestive) heart failure; E03.9 Hypothyroidism, unspecified; K21.9 Gastro-esophageal reflux disease without esophagitis; I11.0 Hypertensive heart disease with heart failure; I50.9 Heart failure, unspecified; R62.7 Adult failure to thrive; R73.9 Hyperglycemia, unspecified; R29.704 NIHSS score 4; D50.9 Iron deficiency anemia, unspecified
CPT/HCPCS: 36415; 70450; 70496; 70498; 70551; 71046; 80048; 80061; 82607; 82747; 82962; 83036; 83550; 84134; 84484; 85025; 85610; 85670; 85730; 93005; 93010; 93306; 93880; G0378; A9270-GY; C9113; J1650; J2997; J7030; J7042; Q9967